=== PATIENT | female | born 1980 ===

== ENCOUNTER 2024-04-20 11:53 | Emergency (ER) | payer MEDICAID, SELFPAY ==
[2024-04-20] VITALS (10 sets, daily range): BP systolic 117–134; BP diastolic 65–94
--- NOTE | 2024-04-20 12:52 | ED.GENMED ---
Addendum entered and electronically signed by Camilo Friend PA-C 04/24/24 07:39:
On cephalexin, appropriate per C&S
Original Note:
History of Present Illness
General
Chief Complaint: Withdrawal Symptoms
Source: patient
Exam Limitations: none
Time Seen by Provider: 04/20/24 12:40
Nursing documentation reviewed up to this point in time: agreed with
History of Present Illness
History of Present Illness:
Patient to ED with complaint of withdrawal symptoms. Withdrawing from methadone and fentanyl. Last dose of fentanyl was , last fentanyl use was sunday. COmplains of nausea and vomiting.
Past History
Past History
ED Past Medical History: None
ED Past Surgical History: None
Social History
Alcohol: Occasional
Drug: IVDA
Review of Systems
Review of Systems
Allergies reviewed?: Yes
All Other Systems: ROS reviewed and negative except as documented in HPI and ROS
Constitutional: Reports no symptoms
EENT: Reports no symptoms
Respiratory: Reports no symptoms
Cardiac: Reports no symptoms
ABD/GI: Reports nausea and vomiting
: Reports no symptoms
Musculoskeletal: Reports no symptoms
Skin: Reports no symptoms
Neurological: Reports weakness
Psychiatric: Reports no symptoms
Phy Exam
General Physical Exam
General Presentation: mild distress
General age: appears stated age
General Skin: warm and dry
General Habitus: normal
Cardiovascular Exam
Cardiovascular Exam: regular rate/rhythm and no edema
Pulmonary Exam
Pulmonary Exam: lungs clear and no respiratory distress
Gastrointestinal Exam
Gastrointestinal Exam: normal bowel sounds and non tender
Neurological Exam
Neurological Exam: alert, oriented x3, CN II-XII intact, no motor deficits and no sensory deficits
Musculoskeletal Exam
Musculoskeletal Exam: full ROM and neuro vasc intact
Skin Exam
Skin Exam: normal color and warm/dry
Psychiatric Exam
Psychiatric Exam: normal mood/affect
Course
Orders/Labs/Results
Orders:
Orders
04/20/24 12:52
Ondansetron Injectable [Zofran] 4 mg IV NOW STA
04/20/24 12:53
0.9% Sodium Chloride 1000 ml [Nss] 1,000 ml IV BOLUS
Test Result ONCE
04/20/24 13:05
Lorazepam [Ativan] 1 mg IV NOW STA
04/20/24 13:10
Prochlorperazine [Compazine] 10 mg IV NOW STA
04/20/24 13:12
Cardiac Monitoring- Treatment ONCE
04/20/24 13:37
Methadone [Dolophine] 80 mg PO NOW STA
04/20/24 14:22
Alcohol Urgent
Complete Blood Count/With Diff Urgent
Comprehensive Metabolic Panel Urgent
Fentanyl, Urine Urgent
HCG, Serum Qualitative Screen Urgent
Urinalysis Reflex To Culture Urgent
Date Specimen was Collected: 04/20/24
Time Specimen was Collected: 13:01
Urine Drug Abuse Screen Urgent
Date Specimen was Collected: 04/20/24
Time Specimen was Collected: 13:01
Urine Microscopic Reflex Cult Urgent
Urine Culture Urgent
YOGESH Source: U
Specimen Description:
Date Specimen was Collected: 04/20/24
Time Specimen was Collected: 13:01
04/20/24 19:31
Cephalexin Monohydrate [Keflex] 500 mg PO NOW STA
04/20/24 20:38
Methadone [Dolophine] 80 mg PO NOW STA
Prochlorperazine [Compazine] 10 mg IV NOW STA
04/20/24 21:12
Lorazepam [Ativan] 1 mg IV NOW STA
04/21/24 05:30
Prochlorperazine [Compazine] 10 mg .ROUTE .STK-MED ONE
04/21/24 05:31
Prochlorperazine [Compazine] 10 mg IV NOW STA
04/21/24 12:16
Methadone [Dolophine] 80 mg PO NOW STA
Abnormal Lab Results
04/20/24
14:22
MCV 78.5 L fL
(81.0-99.0)
Absolute Neuts (auto) 8.5 H 10^3/uL
(1.4-6.5)
Absolute Lymphs (auto) 1.1 L 10^3/uL
(1.2-3.4)
Neutrophils % 86.1 H %
(42.2-75.2)
Lymphocytes % 11.2 L %
(20.5-51.1)
Calcium 11.6 H mg/dl
(8.4-10.2)
Urine Ketones 2+ A
(Negative)
Ur Occult Blood Reflex 2+ A
(Negative)
Leukocyte Esterase Rfl 2+ A
(Negative)
Urine RBC 3-6 A /HPF
(0-2)
Urine WBC (Reflex) 70-80 A /HPF
(0-5)
Urine Bacteria (Reflex) Moderate A
(Negative)
Urine Opiates Screen Positive H
(Negative)
Urine Methadone Screen Positive H
(Negative)
Urine Fentanyl Screen Positive H
(Negative)
Urine Cocaine Screen Positive H
(Negative)
04/20/24 14:22
04/20/24 14:22
Vital Signs
Initial and Last Documented VS:
Initial Vital Signs
Temp Pulse Resp BP Pulse Ox
98.1 F 80 16 119/81 100
04/20/24 11:55 04/20/24 11:55 04/20/24 11:55 04/20/24 11:55 04/20/24 11:55
Last Documented Vital Signs
Temp Pulse Resp BP Pulse Ox
98.1 F 109 22 122/87 100
04/20/24 11:55 04/21/24 12:33 04/21/24 12:33 04/21/24 12:33 04/20/24 20:30
*Critical Care Note
Total Time (30-74mins, 75-104mins- exclusive of procedures): Not Applicable
Update Note
Update Note:
Patient to ED with complaint of withdrawal symptoms. Aniya report that she did take methadone yesterday but not today. Used fentanyl 2 days ago and most likely the cause of her withdrawal symptoms. Given ativan and compazine with good results. No
further vomiting. Slept most of shift. She initially refused methadone due to her n/v. Now without symptoms. Will hold methadone for now. Drew has agreed to inpatient rehab. Aniya will follow up with her in the AM for placement. According
to Aniya, rehab can not accept her until Methadone dose is verified with prescriber. This will be done in the AM when office is open. Patient remains awake and alert, in no distress. UA results reviewed. +UTI. Given Keflex 500mg po in dept.
WIll discharge with rx for BID dose x 5 days. She is medically stable for inpatient drug rehab.
Patient vomiting again. Will recommend Methadone 80mg dose, compazine 10mg IV.
ED Attending Note
-
Portions of this chart may have been created with voice recognition software.� Occasional wrong word or��sound alike� substitutions may have occurred due to the inherent limitations of voice recognition software.
Discharge Plan
Departure
Patient Disposition: Acute Rehab Facility
Date of Disposition: 04/21/24
Time of Disposition: 13:37
Patient with high blood pressure during this ER visit?: No
Condition: Good
Covid-19: Not Applicable
Discharge Problem:
medical clearance
Instructions: Urinary tract infections in adults, Drug Misuse and Addiction (DC)
Prescriptions:
New
cephalexin 500 mg capsule
500 mg PO Q8H Qty: 20 0RF
No Action
methadone 10 mg/mL Concentrate
80 mg PO DAILY
Referrals:
Izabella Layton DO [Family Provider] -
Activity Restrictions/Additional Instructions:
As discussed, you are being discharged to rehab facility for continual evaluation and treatment. In the meantime, recommend continuing antibiotics, as urinalysis reveals likely urinary tract infection.
Interventions
Interventions:
*Risk Screen - Suicide Last Done: 04/20/24 13:59
*General Assessment Last Done: 04/20/24 13:59
*Neglect/Abuse Screening Last Done: 04/20/24 13:59
ED- Fall Risk Assessment Last Done: 04/20/24 20:53
*ED COVID-19 Vaccine History Last Done: 04/20/24 19:10
ED- Neurological Assessment Last Done: 04/20/24 13:59
ED-Psychological Assessment Last Done: 04/20/24 13:59
Discharge Date and Time
Print Language: CYMRAES
[2024-04-20] MEDS: COMPAZINE 10 MG IV ×2 (13:38→20:45)
[2024-04-20] MEDS: ATIVAN 1 MG IV ×2 (13:38→21:28)
[2024-04-20] MEDS: NSS 1000 IV (13:39)
[2024-04-20 14:30] LABS: % Basophils 0.3 % (0-2); % Immature Granulocytes 0.4 % (0-0.5); % Lymphocytes 11.2 % (20.5-51.1); % Neutrophils 86.1 % (42.2-75.2); Absolute Lymphocytes 1.1 10^3/uL (1.2-3.4); Absolute Monocytes 0.2 10^3/uL (0.1-0.6); Absolute Neutrophils 8.5 10^3/uL (1.4-6.5); Hematocrit 39.8 % (37.0-47.0); Hemoglobin 14.4 g/dL (12.0-16.0); Mean Corp Hgb Conc. 36.2 g/dL (33.0-37.0); Mean Corpuscular Hgb 28.4 pg (27.0-31.0); Mean Corpuscular Volume 78.5 fL (81.0-99.0); Mean Platelet Volume 9.6 fL (7.4-10.4); Nucleated Red Blood Cells % 0 %; Platelet Count 311 10^3/uL (130-400); Red Blood Cell Count 5.07 10^6/uL (4.20-5.40); Red Cell Dist. Width 12.9 % (11.5-14.5); White Blood Cell Count 9.9 10^3/uL (4.8-10.8)
[2024-04-20 14:41] LABS: HCG, Serum Qualitative Screen Negative
[2024-04-20 14:44] LABS: ALT (SGPT) 17 U/L (0-35); AST (SGOT) 26 U/L (14-36); Albumin 4.9 g/dl (3.5-5.0); Alkaline Phosphatase 85 U/L (38-126); Blood Urea Nitrogen 17 mg/dl (7-17); Calcium 11.6 mg/dl (8.4-10.2); Carbon Dioxide 30 mmol/L (22-30); Chloride 100 mmol/L (98-107); Glucose 97 mg/dl (70-99); Potassium 3.6 mmol/L (3.5-5.1); Sodium 138 mmol/L (135-145); Total Bilirubin 0.8 mg/dl (0.2-1.3); Total Protein 8.1 g/dl (6.3-8.2); eGFR > 60.00
[2024-04-20 14:46] LABS: Alcohol None Detected
[2024-04-20 19:07] LABS: Urine Albumin Trace (Neg - Trace); Urine Bilirubin Negative (Negative); Urine Character Very Cloudy (Clear); Urine Color Yellow; Urine Glucose Negative (Negative); Urine Ketone 2+ (Negative); Urine Leukocyte 2+ (Negative); Urine Nitrite Negative (Negative); Urine Occult Blood 2+ (Negative); Urine Urobilinogen Negative (Neg - 1+)
[2024-04-20 19:16] LABS: Amphetamines Negative (Negative); Barbiturates Negative (Negative); Benzodiazepines Negative (Negative); Buprenorphine Negative (Negative); Cocaine Positive (Negative); Marijuana Negative (Negative); Methadone Positive (Negative); Methamphetamines Negative (Negative); Opiates Positive (Negative); Phencyclidine Negative (Negative); Tricyclic Antidepressants Negative (Negative)
[2024-04-20 19:17] LABS: Urine Amorphous Seen
[2024-04-20 19:18] LABS: Urine Bacteria Moderate (Negative); Urine White Cell 70-80 /HPF (0-5)
[2024-04-20 19:21] LABS: Fentanyl, Urine Positive (Negative)
[2024-04-20] MEDS: KEFLEX 500 MG PO (19:46)
[2024-04-21] VITALS: BP 128/62
[2024-04-21 04:00] VITALS: BP 136/73
[2024-04-21] MEDS: COMPAZINE 10 MG IV (05:31)
[2024-04-21 09:16] VITALS: BP 142/67
[2024-04-21] MEDS: DOLOPHINE 80 MG PO (12:30)
[2024-04-21 12:33] VITALS: BP 122/87
== END 2024-04-21 14:00 ==
LOC: EMR 11:53
PROVIDERS: Nurse Practitioner; EMERGENCY PHYSICIAN Emergency Medicine; FAMILY PHYSICIAN Family Medicine
DX: Z00.00 Encounter for general adult medical examination without abnormal findings (principal); F11.23 Opioid dependence with withdrawal
CPT/HCPCS: 99285; 96374 ×2; 96375; 96376; 96361; 80053; 80306; 80307; 81003; 81015; 82077; 84703; 85025; 87086; 87088; 87186